=== PATIENT | female | born 1980 | race Caucasian/White ===

== ENCOUNTER → 2023-07-14 10:18 | Outpatient (REF) | payer OTHER, SELFPAY | LOC: DHCBC HW 10:18 | PROVIDERS: ATTENDING PHYSICIAN Internal Medicine; FAMILY PHYSICIAN Student in an Organized Health Care Education/Training Program | DX: R07.89 Other chest pain (principal); I10 Essential (primary) hypertension; O14.93 Unspecified pre-eclampsia, third trimester | CPT/HCPCS: 93306 ==